=== PATIENT | male | born 1965 | race Caucasian/White ===

== ENCOUNTER 2017-07-17 11:11 | Emergency (ER) | payer SELFPAY ==
[2017-07-17 11:27] VITALS: BP 134/84
[2017-07-17] MEDS ORDERED: Lidocaine 1% MPF* 2 ML VIAL INJ ONE (12:21)
--- NOTE | 2017-07-17 12:33 | RAD ---
INDICATION: Facial trauma COMPARISON: None TECHNIQUE: Possible views of the facial bones were obtained FINDINGS: There is no plain radiographic evidence of a facial bone fracture. The sinuses appear well aerated. The left frontal air cells are hypoplastic. The sella is intact. There are no calvarial abnormalities IMPRESSION: NO PLAIN RADIOGRAPHIC ABNORMALITIES. SUGGEST CT IMAGING IF THERE IS PERSISTENT CONCERN FOR FACIAL BONE FRACTURE.
--- NOTE | 2017-07-17 12:48 | UC ---
Laceration HPI - HPI Summary HPI Summary: Patient presents to the with superficial irregular laceration of the left cheek from a metal beam striking the face at work. He notes to pain around the cheek and there is swelling over the area. Denies any EAST, LOC or falls. Denies other pain, symptoms or concerns at this time. Tetanus UTD. - History Of Current Complaint Chief Complaint: UCLaceration Stated Complaint: FACIAL LAC Time Seen by Provider: 07/17/17 12:01 Hx Obtained From: Patient Laceration Location: Face Mechanism Of Injury: Sharp Trauma Onset/Duration: Sudden Onset Severity: Moderate Pain Intensity: 2 Pain Scale Used: 0-10 Numeric Aggravating Factors: Nothing Related History: Occupational Injury - Allergies/Home Medications Allergies/Adverse Reactions: Allergies Allergy/AdvReac Type Severity Reaction Status Date / Time No Known Allergies Allergy Verified 07/17/17 11:27 Home Medications: Home Medications NK [No Home Medications Reported] 07/17/17 [History Confirmed 07/17/17] PMH/Surg Hx/FS Hx/Imm Hx Previously Healthy: Yes - Surgical History Surgical History: None - Social History Occupation: Employed Full-time Lives: With Family Alcohol Use: Rare Substance Use Type: None Smoking Status (MU): Light Every Day Tobacco Smoker Amount Used/How Often: 3 per day Household Exposure Type: Cigarettes Review of Systems Constitutional: Negative Skin: Other - laceration to the left cheek Gastrointestinal: Negative Genitourinary: Negative Neurovascular: Negative Musculoskeletal: Negative Neurological: Negative All Other Systems Reviewed And Are Negative: Yes Physical Exam Triage Information Reviewed: Yes Appearance: Well-Appearing, No Pain Distress, Well-Nourished Vital Signs: Initial Vital Signs Temp 98.8 F 07/17/17 11:23 Pulse 91 07/17/17 11:23 Resp 18 07/17/17 11:23 BP 134/84 07/17/17 11:23 Pulse Ox 99 07/17/17 11:23 Vital Signs Reviewed: Yes Eye Exam: Normal Eyes: Positive: Conjunctiva Clear Neck exam: Normal Neck: Positive: Supple, Nontender Respiratory Exam: Normal Respiratory: Positive: Chest non-tender, Lungs clear Cardiovascular Exam: Normal Cardiovascular: Positive: RRR Musculoskeletal Exam: Normal Musculoskeletal: Positive: Strength Intact Neurological Exam: Normal Neurological: Positive: Alert Psychological: Positive: Normal Response To Family Skin: Positive: Other - irregular laceration to the left cheek measuring .5cm Laceration Repair - Laceration Repair 1 Description: Irregular Laceration Size After Repair: Length (cm) - .5cm - irregular, superifical Modified For Repair: No Anesthesia Used: 1.0% Lido Cleansing Completed Via Routine Prep: No Irrigation With Pressure Irrigation Device: No Closure Method: Single Layer Suture Of: Skin Suture Type: Prolene - 3 sutures placed Laceration Course/Dx - Course/Dx Course Of Treatment: Patient evaluated for laceration from a metal beam to the left cheek. He notes to some swelling and pain. Xray negative for any acute injury or fracture. Tetanus UTD. Cleansed wound and obtained timeout. 3 6-0 non-absorbable sutures placed. 2ml Lidocaine without epi. Patient tolerated well. Sutures out in 5 days. - Differential Dx - Laceration/Wound Differental Diagnoses: Avulsion, Laceration Provider Diagnoses: Laceration of the cheek Discharge - Discharge Plan Condition: Stable Disposition: HOME Patient Education Materials: Care For Your Stitches (ED) Referrals: No Primary Care Phys,NOPCP [Primary Care Provider] - Additional Instructions: Suture removal in 5 days Keep covered for 1 day, then may leave open to air Images Head: 1 - .5cm irregular superficial laceration without FB
== END 2017-07-17 12:52 | disposition home or self-care (01) ==
LOC: UCEAST 11:11
DX: S01.412A Laceration without foreign body of left cheek and temporomandibular area, initial encounter (principal); W22.8XXA Striking against or struck by other objects, initial encounter; Y92.9 Unspecified place or not applicable; F17.210 Nicotine dependence, cigarettes, uncomplicated
CPT/HCPCS: 12011; 70140; 99201; G0463

== ENCOUNTER 2017-07-22 15:26 | Emergency (ER) | payer SELFPAY ==
[2017-07-22 16:00] VITALS: BP 131/84
--- NOTE | 2017-07-22 16:22 | UC ---
Skin Complaint HPI - HPI Summary HPI Summary: Patient presents with suture removal to the left cheek. He was seen 5 days ago with 3 sutures placed. He states the area become bruised and swelling x 3 days but is currently back to baseline with only slight discoloration. Denies fever, sweats, or chills. - History of Current Complaint Chief Complaint: UCSkin Time Seen by Provider: 07/22/17 15:37 Stated Complaint: STITCHES REMOVAL Hx Obtained From: Patient Onset/Duration: Sudden Onset Skin Exposure Onset/Duration: Minutes Ago Timing: Constant Onset Severity: Mild Current Severity: Mild Pain Intensity: 2 Pain Scale Used: 0-10 Numeric Character: Pruritus Alleviating: Nothing Related History: Trauma - Allergy/Home Medications Allergies/Adverse Reactions: Allergies Allergy/AdvReac Type Severity Reaction Status Date / Time No Known Allergies Allergy Verified 07/17/17 11:27 Review of Systems Constitutional: Negative Skin: Other - .5cm laceration to the left cheek Respiratory: Negative Cardiovascular: Negative Motor: Negative Neurovascular: Negative Neurological: Negative Psychological: Negative Is Patient Immunocompromised?: No All Other Systems Reviewed And Are Negative: Yes PMH/Surg Hx/FS Hx/Imm Hx Previously Healthy: Yes - Surgical History Surgical History: None - Family History Known Family History: Positive: Unknown - Social History Occupation: Employed Full-time Lives: With Family Alcohol Use: Weekly Substance Use Type: None Smoking Status (MU): Light Every Day Tobacco Smoker Amount Used/How Often: 3 per day Household Exposure Type: Cigarettes Physical Exam Triage Information Reviewed: Yes Appearance: Well-Appearing, Well-Nourished Vital Signs: Initial Vital Signs Temp 99.1 F 07/22/17 15:54 Pulse 63 07/22/17 15:54 Resp 16 07/22/17 15:54 BP 131/84 07/22/17 15:54 Pulse Ox 98 07/22/17 15:54 Vital Signs Reviewed: Yes Eye Exam: Normal Eyes: Positive: Conjunctiva Clear Neck exam: Normal Neck: Positive: Supple, Nontender Respiratory Exam: Normal Respiratory: Positive: Chest non-tender, Lungs clear Cardiovascular Exam: Normal Cardiovascular: Positive: RRR, No Murmur Musculoskeletal Exam: Normal Musculoskeletal: Positive: Strength Intact Neurological Exam: Normal Neurological: Positive: Alert Psychological: Positive: Normal Response To Family Skin: Positive: Other - .5cm laceration. healing well Course/Dx - Course Course Of Treatment: .5cm laceration. healing well with 3 sutures. sutures were removed and wound rechecked. No drainage or signs of infection. patient is feeling otherwise well. - Differential Diagnoses - Skin Complaint Differential Diagnoses: Other - laceration, avulsion, stitches - Diagnoses Provider Diagnoses: suture removal Discharge - Discharge Plan Condition: Stable Disposition: HOME Patient Education Materials: Stitches Removal (ED) Referrals: No Primary Care Phys,NOPCP [Primary Care Provider] -
== END 2017-07-22 16:20 | disposition home or self-care (01) ==
LOC: UCEAST 15:26
DX: Z48.817 Encounter for surgical aftercare following surgery on the skin and subcutaneous tissue (principal); Z48.02 Encounter for removal of sutures
CPT/HCPCS: 99211; G0463